=== PATIENT | female | born 1970 | race Caucasian/White ===

== ENCOUNTER 2018-05-06 18:05 | Inpatient (IN) | payer OTHER ==
[~2018-05-06] VITALS: Ht 157.5 cm; Wt 86.0 kg
[~2018-05-06 18:05] MED LIST: ALPRAZOLAM ER1 MG PO; AMETHYST1 EACH PO; BUDEPRION XL300 MG PO; DEPO-PROVERA; HYDROCODONE-AP1 EAC6 PO; LAMICTAL XR200 MG PO; LAMOTRIGINE200 MG PO; LEVOTHYROXIN0.125 M1 PO; LITHIUM CARBON300 M3 PO; NASONEX17 GM NS; NORDETTE-281 EACH PO; PROZAC20 MG PO; SERTRALINE HCL100 MG PO; SYNTHROID137 MCG PO; VYVANSE50 MG PO; XANAX 0.5 MG0.5 M1 PO
[2018-05-06 18:14] VITALS: BP 133/92
[2018-05-06] MEDS ORDERED: TIROSINT137 MCG PO (18:35)
[2018-05-06 18:46] LABS: ABSOLUTE NEUTROPHILS 3.1 thou/uL (1.4-8.2); BASOPHILS 0.9 % (0.0-2.0); EOSINOPHILS 4.8 % (0.0-3.0); HEMOGLOBIN 13.2 gm/dL (12.0-15.0); LYMPHOCYTES 35.8 % (24.0-44.0); MCH 31.5 pg (26.0-34.0); MCHC 35.6 g/dL (28.0-37.0); MCV 88.5 fL (80.0-100.0); MONOCYTES 9.3 % (1.0-8.0); PLATELET COUNT 284 thou/uL (150-400); POLYS 49.2 % (36.0-66.0); RBC 4.18 mil/uL (4.20-5.00); RDW 13.1 % (10.5-14.5); WBC 6.3 thou/uL (4.0-11.0)
[2018-05-06 18:54] LABS: ANION GAP 10 mmol/L (7-16); BUN 8 mg/dL (7-18); CALCIUM 8.5 mg/dL (8.5-10.1); CHLORIDE 106 mmol/L (98-107); CO2 23 mmol/L (21-32); CREATININE 0.8 mg/dL (0.6-1.0); GLUCOSE 93 mg/dL (74-106); POTASSIUM 3.9 mmol/L (3.5-5.1); SODIUM 139 mmol/L (136-145)
[2018-05-06 18:57] LABS: AMP/METHAMP Negative (Negative); BARBITURATES Negative (Negative); BENZODIAZEPINES POSITIVE (Negative); COCAINE Negative (Negative); METHADONE Negative (Negative); OPIATES Negative (Negative); PCP Negative (Negative)
[2018-05-06 19:00] LABS: ALBUMIN 3.7 g/dL (3.4-5.0); SALICYLATE < 2.8 mg/dL (2.8-20.0); SGOT 23 U/L (15-37); SGPT 26 U/L (30-65); TOTAL BILIRUBIN 0.2 mg/dL (<0.1-1.0); TOTAL PROTEIN 6.9 g/dL (6.4-8.2)
--- NOTE | 2018-05-06 19:33 | NUR ---
TALKED WITH GAURAV LOUIS, WILL FAX INFO ON CARE AFTER REVIEWING AMOUNT OF XANAX , ETOH AND CLINICAL PRESENTATION NOW
--- NOTE | 2018-05-06 19:49 | NUR ---
SPOUSE REPORTED THAT XANAX IS REGULAR STRENGTH, NOT EXTENDED
[2018-05-06 22:02] VITALS: BP 100/53
[2018-05-06 22:12] VITALS: BP 102/67
[2018-05-06 22:34] LABS: MAGNESIUM 2.3 mg/dL (1.8-2.4); PHOSPHORUS 4.6 mg/dL (2.5-4.9)
[2018-05-06 23:00] VITALS: BP 108/70
--- NOTE | 2018-05-07 04:29 | NUR ---
Admission history and assessments completed. Careplan initiated. IVFluids and Banana bag infusing. Patient intermittently drowsy and unsteady but arousable with verbal stimuli. Denies pain, calm and cooperative. Sitter at bedside. Fall, suicide precautions in place. Vital signs and ryhthm stable. For psych consult.
[2018-05-07 04:30] VITALS: BP 106/65
[2018-05-07 04:32] LABS: CALCIUM 7.8 mg/dL (8.5-10.1); CREATININE 0.8 mg/dL (0.6-1.0)
[2018-05-07 05:07] LABS: TSH 0.279 uIU/mL (0.358-3.740)
[2018-05-07 05:51] LABS: FOLIC ACID 28.8 ng/mL (8.6-58.9)
[2018-05-07 07:59] VITALS: BP 106/76
--- NOTE | 2018-05-07 08:37 | EKG ---
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1970 Requested By: Sarahi Wang Order Number: [id number] MD: Bulmaro Paulson Measurements Intervals [place] Rate: 93 P: 40 RI: 160 QRS: 11 QRSD: 107 T: 44 QT: 368 QTc: 458 Interpretive Statements Sinus rhythm Nonspecific ST segment abnormality No previous ECG available for comparison Electronically Signed On 05-07-2018 8:37:31 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
[2018-05-07] MEDS ORDERED: CYMBALTA60 MG PO (09:11)
[2018-05-07] MEDS ORDERED: LITHIUM CARBON450 MG PO (09:22)
--- NOTE | 2018-05-07 09:23 | NUR ---
Called patient's pharmacy, [facility] [employer], to verify Lamictal and [place] dose. Both entered into pharmacy reconciliation and notified Dr. Georges of update of home meds.
[2018-05-07 11:19] VITALS: BP 128/94
--- NOTE | 2018-05-07 12:12 | NUR ---
ASSESSMENT: CM REVIEWED CHART AND MET WITH PATIENT AT THE BEDSIDE. PT IS ALERT AND ORIENTED X4 AND PATIENTS IS ALSO PRESENT. PT WAS ADMITTED AFTER SUICIDE ATTEMPT OF TAKING XANAX WITH ETOH. PT REPORTS SHE LIVES IN A HOUSE WITH HER . PT STATES ONE STEP TO ENTER THE HOME AND REPORTS STEPS TO THE BASEMENT WHERE LAUNDRY IS WITH HANDRAILS ON BOTH SIDES. PT REPORTS BEING FULLY INDEPENDENT WITH ADLS AND AMBULATION. PT REPORTS SHE HAS HAD INPATIENT PYSHCIATRIC TREATMENT BEFORE IN [place] BACK IN 2000 STATING SHE HAS AN EATING DISORDER AND WAS SUICIDAL AT THAT TIME. PT REPORTS NO INPATIENT TREATMENT SINCE. PT STATES SHE IS CURRENTLY SEEING AN OUTPATIENT PSYCHIATRIST DR. NAYAN ADAMS AND REPORTS HE IS WITH [place]. PT REPORTS SHE AND HER ALSO SEE A MARITAL COUNSELOR. CM ASKED IF PATIENT FELT SHE NEEDED INPATIENT PSYCHIATRIC TREATMENT AND SHE STATED NO SHE FELT THAT WOULD ONLY MAKE HER FEEL WORSE. PSYCH IS CONSULTED TO SEE PATIENT. CM WILL FOLLOW UP WITH PSYCH RECOMMENDATIONS PATIENT AT THIS TIME WISHES TO FOLLOW UP OUTPATIENT. CM WILL CONTINUE TO FOLLOW TO ASSIST NEEDED. PT CURRENTLY HAS 1:1 SITTER.
--- NOTE | 2018-05-07 14:55 | NUR ---
Assumed care of patient at 0700. Vitals have been stable. Patient drowsy throughout day, mostly sleeping throughout the shift, but easily arouses. Alert and oriented x4. Calm. Complaints of some abdominal cramping, associated with menstrual cycle. Ibuprofen ordered PRN and administered with good effect. at bedside this afternoon. Patient interactive and social. Advanced to regular diet, tolerating well. Awaiting psych to round on patient. Home meds were verified through patient's pharmacy and updated Dr. Georges. Awaiting lithium level and then either Dr. Georges or Dr. Ferrera can restart. Sitter remains at bedside for patient safety. Slowly progressing towards POC. Will continue to monitor.
[2018-05-07 15:29] VITALS: BP 113/73
[2018-05-07 19:10] VITALS: BP 133/91
[2018-05-08 03:59] VITALS: BP 113/79
[2018-05-08 04:23] LABS: HEMOGLOBIN 12.8 gm/dL (12.0-15.0); MCH 31.2 pg (26.0-34.0); MCHC 34.7 g/dL (28.0-37.0); MCV 89.9 fL (80.0-100.0); RBC 4.12 mil/uL (4.20-5.00); RDW 13.4 % (10.5-14.5); WBC 6.2 thou/uL (4.0-11.0)
[2018-05-08 04:27] LABS: CALCIUM 8.5 mg/dL (8.5-10.1); CREATININE 0.9 mg/dL (0.6-1.0); MAGNESIUM 2.1 mg/dL (1.8-2.4); PHOSPHORUS 3.2 mg/dL (2.5-4.9); POTASSIUM 3.9 mmol/L (3.5-5.1)
--- NOTE | 2018-05-08 07:38 | NUR ---
Pt. has slept well most of the night with sitter at bedside. She has been calm and cooperative. No suicidal ideation. Iboprofen given x 1 at HS for abdominal cramps ( monthly period ) with some relief. Will continue to monitor.
[2018-05-08 08:31] VITALS: BP 129/81
--- NOTE | 2018-05-08 11:34 | NUR ---
dp sent referral for patient to [facility]. Received fax confirmation, dp spoke with Stephanie at [facility], they did receive referral on pt and are reviewing and will get back to us. RICHARD is still trying in acquire fax numbers to send additional referrals to [facility] and [facility]. DP left vm at [facility] requesting call back, dp holding for long time on phone at [facility].
[2018-05-08] MEDS ORDERED: VITAMIN B-1100 M2 PO (13:25)
[2018-05-08] MEDS ORDERED: ACETAMINOPHEN325 M1 PO (13:25)
[2018-05-08] MEDS ORDERED: PEPCID20 MG PO (13:25)
[2018-05-08] MEDS ORDERED: IBUPROFEN 200200 M1 PO (13:25)
[2018-05-08] MEDS ORDERED: LITHIUM CARBON450 MG PO (13:25)
[2018-05-08] MEDS ORDERED: PRENATAL PO (13:25)
--- NOTE | 2018-05-08 16:46 | NUR ---
PT IS PROGRESSING TOWARD POC GOALS. SITTER AT BEDSIDE THROUGHOUT SHIFT. PT C/O OF MENSTRUAL CRAMPING AND WAS MEDICATED PER JUN. K-PAD ORDERED FOR COMFORT. PT DOES NOT EXPRESS SI, AND REPORTS "I FEEL ALRIGHT." PT TO TRANSFER TO INPATIENT PSYCH THIS EVENING OR TOMORROW, AWAITING INFORMATION ON DISCHARGE AT THIS TIME. PT IS RESTING COMFORTABLY, CALL LIGHT WITHIN REACH.
[2018-05-08 17:01] VITALS: BP 134/96
--- NOTE | 2018-05-08 17:24 | NUR ---
on-going assessment: CM CONTINUED TO REACH OUT TO [facility] IN ATTEMPTS TO GET PATIENT TO INPATIENT PSYCH TODAY. CM ATTEMPTED TO CONTACT NURSE DRY COLOR TESTER MULTIPLE TIMES AT [phone]. CM SPOKE WITH INTAKE WHO STATES THEY HAVE ACCEPTED THE PATIENT AND HAVE ADMITTING ORDERS BUT WILL NEED TO SPEAK WITH THE DRY COLOR TESTER BEFORE ARRANGING TRANSPORTATION. MARTINE HAS LEFT MULTIPLE VM WITH NURSE DRY COLOR TESTER AND ALSO GAVE INTAKE THE NUMBER FOR NURSES STATION FOR THEM TO HAVE NURSE DRY COLOR TESTER CALL BEDSIDE RN. CHART COPY HAS BEEN ORDERED AND ORDERS WERE FAXED TO FACILITY. BEDSIDE RN AWARE. CHART COPY IS ORDERED. CM NOTIFIED BEDSIDE RN THAT NURSE DRY COLOR TESTER FROM [facility] SHOULD BE CONTACTING UNIT AND IF SO PATIENT WILL NEED TO GO VIA [facility]. [facility] FORM IS ON THE FRONT OF CHART AND WILL NEED TO BE FAXED [phone] AND THEN CONTACT [facility] [phone] TO ARRANGE.
--- NOTE | 2018-05-08 20:03 | NUR ---
Pt. discharged per ambulance around 1999. HS meds given per pt. request. IV dc'd and tele dc'd.
--- NOTE | 2018-05-08 20:06 | NUR ---
Discharged per ambulance to [facility].
== END 2018-05-08 20:00 | DRG 918 ==
LOC: ER 18:05 → EROBS 21:30 → 3W 22:25 → EROBS 22:25 → 3W 22:26
PROVIDERS: Emergency Medicine; Nurse Practitioner Family; ADMIT Internal Medicine
DX: T42.4X2A Poisoning by benzodiazepines, intentional self-harm, initial encounter (principal); J45.909 Unspecified asthma, uncomplicated; F31.9 Bipolar disorder, unspecified; F41.9 Anxiety disorder, unspecified; E03.9 Hypothyroidism, unspecified; F10.129 Alcohol abuse with intoxication, unspecified; Y90.9 Presence of alcohol in blood, level not specified; F19.10 Other psychoactive substance abuse, uncomplicated; Y92.89 Other specified places as the place of occurrence of the external cause
CPT/HCPCS: 10879